=== PATIENT | female | born 1940 | race African-American/Black ===

== ENCOUNTER 2017-06-05 11:47 | Inpatient (IN) | payer MEDICARE, OTHER ==
[2017-06-05 13:06] LABS: #Basophils 0.1 thou/uL (0.0-0.2); #Eosinphils 0.1 thou/uL (0.0-0.7); #Lymphocytes 2.6 thou/uL (1.20-3.40); #Monocytes 0.5 thou/uL (0.11-0.59); #Neutrophils 3.2 thou/uL (1.40-6.50); %Basophils 1.1 % (0.0-1.0); %Eosinophils 1.6 % (0.0-10.0); %Lymphocytes 40.8 % (21.0-51.0); %Monocytes 7.1 % (0.0-10.0); %Neutrophils 49.5 % (42.0-75.0); Hemoglobin 12.9 g/dL (12.0-16.0); Mean Corpuscular HGB CONC 31.6 g/dL (32.0-36.0); Mean Corpuscular Hemoglobin 28.1 pg (27.0-31.0); Mean Platelet Volume 7.9 fL (7.4-10.4); Platelet Count 215 thou/uL (130-400); RBC Distribution Width 13.4 % (11.5-14.5); Red Blood Cell (RBC) Count 4.59 mill/uL (4.20-5.40); White Blood Cell (WBC) Count 6.4 thou/uL (4.8-10.8)
[2017-06-05] MEDS ORDERED: Lisinopril 10 MG TAB ONE (13:17)
[2017-06-05 13:27] LABS: ALT (SGPT) 14 U/L (8-55); AST (SGOT) 18 U/L (5-34); Alkaline Phosphatase 120 U/L (40-150); Anion Gap 12 mmol/L (10-20); BUN (Urea Nitrogen) 8 mg/dL (9.8-20.1); Bilirubin, Total 0.3 mg/dL (0.2-1.2); Calc. Creatinine Clearance 0 mL/min (70-130); Calcium 9.2 mg/dL (7.8-10.44); Carbon Dioxide 29 mmol/L (23-31); Chloride 105 mmol/L (98-107); Estimated GFR-MDRD 60; Globulin 3.5 g/dL (2.4-3.5); Glucose 86 mg/dL (83-110); Potassium 3.6 mmol/L (3.5-5.1); Protein, Total 7.5 g/dL (6.0-8.3); Sodium 142 mmol/L (136-145)
[2017-06-05 13:32] LABS: CKMB 1.3 ng/mL (0-6.6); Troponin I 0.297 ng/mL (< 0.028)
[2017-06-05] MEDS ORDERED: Aspirin 325 MG TAB ONE (14:02)
[2017-06-05] MEDS ORDERED: Nitroglycerin 2% Ointment 1 INCH/1 GM Packet ONE (14:02)
[2017-06-05 16:46] LABS: Troponin I 0.255 ng/mL (< 0.028)
[2017-06-05] MEDS ORDERED: cloNIDine 0.1 MG TAB ONE (18:16)
[2017-06-05] MEDS ORDERED: Metoprolol Tartrate 50 MG TAB ONE (18:16)
[2017-06-05] MEDS ORDERED: Labetalol HCl 100 MG/20 ML VIAL SLOW IVP PRN (19:27)
[2017-06-05 19:29] LABS: Troponin I 0.283 ng/mL (< 0.028)
[2017-06-05] MEDS: cloNIDine 0.1 MG TAB PO SCH (20:59)
[2017-06-05] MEDS: Metoprolol Tartrate 100 MG TAB PO SCH (20:59)
[2017-06-05] MEDS: Atorvastatin Calcium 10 MG TAB PO SCH (20:59)
[2017-06-05 22:54] VITALS: BMI 23.4
[2017-06-06 01:34] LABS: Troponin I 0.282 ng/mL (< 0.028)
--- NOTE | 2017-06-06 07:43 | HP ---
DATE OF ADMISSION: 06/05/2017 CHIEF COMPLAINT: Elevated blood pressure. HISTORY OF PRESENT ILLNESS: Ms. Jeffries is a 77-year-old -[place] female with past medical history of seizure disorder, hypertension, and TIA, who came because of markedly elevated blood pressure for the last 3-4 days. The patient states her blood pressure has been elevated since Monday which is 3 days ago. Blood pressure was staying around more than 200 systolic, around 205- 207 and is diastolic 120. The patient states she has been taking metoprolol, but has not been taking her clonidine. The patient did not have any chest pain or shortness of breath. No nausea or vomiting. No seizure episode. When the blood pressure goes up to high where she feels dizzy. In the ER, the patient was evaluated and found to have markedly elevated blood pressure of more than 200 systolic by 100 diastolic. The patient received a dose of aspirin, nitro and lisinopril and being admitted to further management. The patient was also found to have elevated troponin in the indeterminate range. Here, the patient felt it could be demand ischemia and sought admission for further evaluation. PAST MEDICAL HISTORY: 1. Hypertension. 2. Seizure disorder. 3. Hyperlipidemia. 4. History of transient ischemic attack. PAST SURGICAL HISTORY: 1. Status post hysterectomy. 2. Status post appendectomy. CURRENT MEDICATIONS: The patient is no metoprolol 100 mg b.i.d., Dilantin 100 mg t.i.d., aspirin 81 mg daily. The patient is supposed to be on clonidine 0.1 mg b.i.d. ALLERGIES: To PENICILLIN. FAMILY HISTORY: Nothing of interest. SOCIAL HISTORY: The patient lives with family. No history of smoking. No history of alcohol. REVIEW OF SYSTEMS: Unremarkable except for the elevated blood pressure. PHYSICAL EXAMINATION: GENERAL: The patient is alert, awake and oriented x3. VITAL SIGNS: Temperature 98, pulse 76, respiration rate 19, blood pressure 200/ 100. HEENT: Head is normocephalic and atraumatic. Pupils are equal and reactive. Nasopharynx is pink, moist. NECK: Supple. No JVD. LUNGS: Bilateral air entry present, no rales, no rhonchi. HEART: S1, S2 regular. ABDOMEN: Soft. No distention, no tenderness. No abnormal bowel sounds. RECTAL: Deferred. CENTRAL NERVOUS SYSTEM: No focal deficit. LABORATORY AND X-RAY FINDINGS: CBC shows WBC 6.4, hemoglobin 12, hematocrit 40 , platelets 250. Metabolic panel: Sodium 140, potassium 4, potassium chloride 105, CO2 of 29, BUN 8, creatinine 1.0, glucose 86, Chest x-ray shows no acute process. EKG shows normal sinus rhythm, no acute ST-T wave changes seen. ASSESSMENT: 1. Hypertensive emergency. 2. Elevated troponin, indeterminant range, possible demand ischemia. 3. Seizure disorder. 4. History of transient ischemic attack. 5. Noncompliant with medications. 6. Hyperlipidemia. PLAN: 1. Vital signs q.4 hours. 2. Activity: As tolerated. 3. Allergies: To PENICILLIN. 4. Hep-Lock. 5. Labetalol 20 IVP q.6 hours p.r.n. 6. Continue her home medications. 7. Troponin I q.6 hours x2. 8. Echocardiogram. [facility]
[2017-06-06] MEDS: cloNIDine 0.1 MG TAB PO SCH ×2 (08:11→20:08)
[2017-06-06] MEDS: Metoprolol Tartrate 100 MG TAB PO SCH ×2 (08:11→20:08)
[2017-06-06] MEDS: Dronedarone HCl 400 MG TAB PO SCH (17:36)
--- NOTE | 2017-06-06 17:56 | CON ---
DATE OF CONSULTATION: 06/06/2017 REASON FOR CONSULTATION: Hypertensive urgency and elevated troponin. PRIMARY SVP RESEARCH AND STRATEGIC ANALYSIS: Dr. Ken Jeffries. HISTORY OF PRESENT ILLNESS: Ms. Jeffries is a very pleasant 77-year-old woman who is a patient of Dr Maegan Jeffries. She recently presented with hypertensive emergency. Her granddaughter states thi s began on Monday where she went to the movies and ate salted popcorn, followed nausea and markedly e levated blood pressure. Monday and Monday continued to be elevated, but fluctuant. She then state s on Monday morning it remained elevated and decided to proceed to the emergency room. She denied ch est pain, pressure, shortness of breath or other associated symptoms. Her blood pressure appears imp roved. PAST MEDICAL HISTORY: Symptomatic bradycardia status post pacemaker, seizure disorder, hypertension, and paroxysmal atrial fibrillation. PAST SURGICAL HISTORY: Hysterectomy, BTL, and appendectomy, ALLERGIES: None. HOME MEDICATIONS: Simvastatin, phenytoin, vitamin D, clonidine, aspirin, metoprolol, and Multaq. REVIEW OF SYSTEMS: Ten point review of systems is reviewed and as above negative. PHYSICAL EXAMINATION: VITAL SIGNS: Blood pressure 165/75, pulse 60, temperature 98. GENERAL: Patient is a pleasant female who is in no acute distress. The patient appears her stated age. NEUROLOGIC: The patient is alert and oriented times 3 with no focal neurologic deficits. HEENT: Sclerae without icterus. Mouth has moist mucous membranes with normal pallor. NECK: No JVD. Carotid upstroke brisk. No bruits bilaterally. LUNGS: Clear to auscultation with unlabored respirations. BACK: No scoliosis or kyphosis. CARDIAC: Regular rate and rhythm with normal S1 and S2. No S3 or S4 noted. No significant rubs, murmurs, thrills, or gallops noted throughout the precordium. PMI is not displaced. There is no parasternal heave. ABDOMEN: Soft, nontender, nondistended. No peritoneal signs present. No hepatosplenomegaly. No abnormal striae. EXTREMITIES: 2+ femoral and 2+ dorsalis pedis pulses. No cyanosis, clubbing, or edema. SKIN: No gross abnormalities. PERTINENT LABORATORY: Hemoglobin 12.9, creatinine 1.07, peak troponin 0.283. IMPRESSION: 1. Hypertensive urgency. 2. Elevated troponin. RECOMMENDATIONS: Ms. Jeffries's last stress test suggested mild hypokinesis of the inferior wall oth erwise normal wall motion with LVEF 65% and negative for ischemia, this was in 2003. She has not had a recent stress study. She would likely benefit from a stress study given elevated troponin. This is likely related to demand ischemia from hypertensive urgency. She is currently on clonidine in add ition to her metoprolol. We will add losartan and may also benefit from a diuretic. Recommendations per Dr. Ken Jeffries in a.m.
[2017-06-06] MEDS: Atorvastatin Calcium 10 MG TAB PO SCH (20:07)
[2017-06-07] MEDS: Dronedarone HCl 400 MG TAB PO SCH ×2 (08:38→16:26)
[2017-06-07] MEDS: Hydrochlorothiazide 25 MG TAB PO SCH (08:38)
[2017-06-07] MEDS: Metoprolol Tartrate 100 MG TAB PO SCH ×2 (08:38→20:34)
[2017-06-07] MEDS: cloNIDine 0.1 MG TAB PO SCH ×2 (08:38→20:33)
[2017-06-07 18:53] LABS: Bilirubin Negative (Negative); Blood, Urine Small (Negative); Clarity CLOUDY (Clear); Glucose, Urine (Dipstick) Negative (Negative); Leukocyte Large (Negative); Nitrite Negative (Negative); Protein, Urine (Dipstick) Negative (Neg-Trace); Specific Gravity, Urine 1.013 (1.002-1.036)
[2017-06-07] MEDS ORDERED: Acetaminophen 325 MG TAB PO PRN (18:54)
[2017-06-07 18:58] LABS: Bacteria/HPF 4+ HPF (None Seen); Hyaline Casts/LPF 0-3 HYALINE CAST LPF (0-3 Hyaline); Squamous Epithelial 0-3 HPF (0-3)
[2017-06-07] MEDS: Losartan 25 MG TAB PO SCH (20:33)
[2017-06-07] MEDS: Atorvastatin Calcium 10 MG TAB PO SCH (20:33)
[2017-06-08 05:36] LABS: Cardiac Risk 2.3 (Less than 4.5)
[2017-06-08] MEDS: Dronedarone HCl 400 MG TAB PO SCH ×2 (08:30→17:36)
[2017-06-08] MEDS ORDERED: Regadenoson 0.4 MG/5 ML SYRINGE ONE (11:33)
[2017-06-08] MEDS: cloNIDine 0.1 MG TAB PO SCH (13:15)
[2017-06-08] MEDS: Hydrochlorothiazide 25 MG TAB PO SCH (13:15)
[2017-06-08] MEDS: Metoprolol Tartrate 100 MG TAB PO SCH (13:16)
--- NOTE | 2017-06-08 14:03 | NM ---
CARDIAC SPECT: CLINICAL HISTORY: 77-year-old black female with chest pain, cardiac ischemia, TIA, COPD, atrial fibrillation, hypertens ion, dyslipidemia. TECHNIQUE: A myocardial perfusion scan was performed using the single isotope one day protocol with technetium-9 9m sestamibi. 9 mCi were injected intravenously for the rest exam followed by 29 mCi for the stress e xam. Pharmacologic stress with Lexiscan was monitored and interpreted by Quiana Arora NP. FINDINGS: Homogeneous tracer distribution is seen in the myocardial segments on stress and rest images without fixed or reversible defects. GATED SPECT LVEF: 87%. WALL MOTION EXAM: Normal. IMPRESSION: Normal myocardial perfusion scan. POS: [facility]
[2017-06-08] MEDS: Atorvastatin Calcium 10 MG TAB PO SCH (21:01)
[2017-06-08] MEDS: Losartan 25 MG TAB PO SCH (21:01)
[2017-06-09] MEDS: cloNIDine 0.1 MG TAB PO SCH ×3 (00:55→22:46)
[2017-06-09] MEDS: Metoprolol Tartrate 100 MG TAB PO SCH ×3 (00:56→22:10)
[2017-06-09] MEDS: Dronedarone HCl 400 MG TAB PO SCH ×2 (10:01→17:50)
[2017-06-09] MEDS: Hydrochlorothiazide 25 MG TAB PO SCH (10:01)
[2017-06-09] MEDS: Atorvastatin Calcium 10 MG TAB PO SCH (22:10)
[2017-06-09] MEDS: Losartan 25 MG TAB PO SCH (22:10)
[2017-06-10 07:46] VITALS: TEMP 96.5
[2017-06-10] MEDS: Hydrochlorothiazide 25 MG TAB PO SCH (08:49)
[2017-06-10] MEDS: cloNIDine 0.1 MG TAB PO SCH (08:49)
[2017-06-10] MEDS: Dronedarone HCl 400 MG TAB PO SCH (08:49)
[2017-06-10] MEDS: Metoprolol Tartrate 100 MG TAB PO SCH (08:49)
[2017-06-10 16:57] VITALS: BP 134/59
--- NOTE | 2017-06-10 19:35 | EKG ---
Test Reason : HIGH BP Blood Pressure : / mmHG Vent. Rate : 062 BPM Atrial Rate : 062 BPM P-R Int : 186 ms QRS Dur : 146 ms QT Int : 482 ms P-R-T Axes : -24 -59 065 degrees QTc Int : 489 ms AV dual-paced rhythm Abnormal ECG Confirmed by TOÑITO ACRROLL, DARCIE Vera ([id number]), editor index VINICIUS GORMAN ([id number]) on 06/10/2017 7:35:08 PM Referred By: Confirmed By:DARCIE SIBLEY MD
--- NOTE | 2017-06-12 12:32 | DIS ---
DATE OF ADMISSION: 06/05/2017 DATE OF DISCHARGE: 06/10/2017 ADMITTING DIAGNOSES: 1. Hypertensive emergency. 2. Elevated troponin, rule out myocardial infarction. 3. Demand ischemia. 4. Seizure disorder. 5. History of transient ischemic attack. 6. Noncompliant with medications. 7. Hyperlipidemia. FINAL DIAGNOSES: 1. Hypertensive urgency, improved. 2. Elevated troponin I, possible demand ischemia. 3. Status post stress test, which shows normal myocardial perfusion. 4. Pacemaker interrogation, normal. 5. Seizure disorder. 6. Hyperlipidemia. 7. Normal systolic left ventricular function. 8. Diastolic dysfunction. BRIEF SUMMARY OF HOSPITAL COURSE: Ms. Jeffries is a 77-year-old -[place] female admitted bec ause of markedly elevated blood pressure more than 200 of systolic and 100 of diastolic. The patient is noncompliant as well and had hypertensive emergency. She had elevated troponin suggestive of dem and ischemia. Medications were adjusted. New medications were ordered. Initially, she was started on clonidine and metoprolol. Blood pressure was still uncontrolled, so losartan was added and also a dded hydrochlorothiazide initially by the plate furnace operator, but her blood pressure started to become low, so it was discontinued. Her clonidine was also discontinued in view of low blood pressure. The pat ient underwent a stress test after she was seen by the plate furnace operator on consultation. Windows Desktop Engineer fe lt the patient's elevated troponin I was secondary to demand ischemia. The stress test was reported as normal myocardial perfusion scan. Echocardiogram was done showed normal LV function with ejection fraction of 55%, but showed diastolic dysfunction. The patient's blood pressure finally controlled. She was discharged home. At the time of discharge, she was stable. Her vital signs were stable. Lungs are clear. Heart sounds regular. Abdomen is soft, nontender. Bowel sounds present. DISCHARGE MEDICATIONS: Include Dilantin 100 mg t.i.d., aspirin 81 mg daily, vitamin D daily 3000 uni ts, simvastatin 20 mg daily, Multaq 400 mg b.i.d., losartan 50 mg daily, metoprolol 100 mg b.i.d. Cl onidine and hydrochlorothiazide were discontinued. FOLLOWUP: The patient will come for followup next week.
--- NOTE | 2017-07-25 13:36 | STRESS ---
Acquisition Time: 2017-06-08 11:39:14 Total Exercise Time: 00:01:00 Test Indications: CARDIAC ISCHEMIA Medications: Protocol: LEXISCAN Max HR: 098 BPM 68% of Pred: 144 BPM Max BP: 168/086 mmHG Max Work Load: 1.0 METS RESTING ECG: A-V PACED AT 63 BPM SYMPTOMS: NONE NORMAL BP RESPONSE ECTOPY: NONE ECG STRESS: NO SIGNIFICANT CHANGES INTERPRETATION: AWAIT NUCLEAR IMAGES FOR DEFINITIVE DIAGNOSIS Confirmed by LIZ PIMENTEL ([id number]) on 07/25/2017 1:35:54 PM Referred By: MD Kulwinder GARCIA Confirmed By:LIZ PIMENTEL
== END 2017-06-10 10:37 | disposition home or self-care (01) | DRG 305 ==
LOC: ERS 11:47 → 2NO 14:55
PROVIDERS: ADMIT Internal Medicine; ATTEND Internal Medicine
DX: I16.0 Hypertensive urgency (principal); I24.8 Other forms of acute ischemic heart disease; G40.909 Epilepsy, unspecified, not intractable, without status epilepticus; E78.5 Hyperlipidemia, unspecified; I10 Essential (primary) hypertension; Z91.14 Patient's other noncompliance with medication regimen; Z86.73 Personal history of transient ischemic attack (TIA), and cerebral infarction without residual deficits; Z88.0 Allergy status to penicillin; Z79.82 Long term (current) use of aspirin; Z79.899 Other long term (current) drug therapy; Z95.0 Presence of cardiac pacemaker
CPT/HCPCS: 36415; 78452; 80053; 80061; 81001; 82553; 84484; 85025; 93005; 93017; 93306; A4216; A9500; J2785

== ENCOUNTER 2017-11-07 13:53 | Emergency (ER) | payer MEDICARE, OTHER ==
--- NOTE | 2017-11-07 16:20 | RAD ---
CHEST 2 VIEWS: Date: 11/07/17 HISTORY: Back pain. COMPARISON: Study from 2008. FINDINGS: Lungs are without focal air space consolidation, pneumothorax, or effusion. No acute osseous abnormal ity. Dual lead pacer is present. IMPRESSION: 1. No acute intrathoracic abnormality. 2. Likely small sliding hiatal hernia. POS: [facility]
--- NOTE | 2017-11-07 16:21 | RAD ---
LEFT SHOULDER THREE VIEWS 11/07/17 INDICATION: Left shoulder pain. FINDINGS: There is moderate osteoarthritis of the left AC joint. Left glenohumeral joint maintains appropriate alignment. There is moderate undersurface osteophytosis at the left AC joint. Partially imaged left s ided cardiac pacing device is present. IMPRESSION: Osteoarthritis of the left shoulder. No acute fracture or dislocation. POS: [facility]
--- NOTE | 2017-11-07 16:49 | CT ---
CT HEAD NONCONTRAST DATE: 11/07/17 HISTORY: Fall. Head injury. COMPARISON: 09/13/12. FINDINGS: There is no evidence of acute intracranial hemorrhage or infarct. Mild chronic ischemic small vessel disease and diffuse cortical atrophy are apparent. There is no mass effect or shift of midline struct ures. Visualized paranasal sinuses remain well aerated. IMPRESSION: No acute intracranial abnormalities are demonstrated on noncontrast CT head. POS: [facility]
== END 2017-11-07 17:02 | disposition home or self-care (01) ==
LOC: ERS 13:53
DX: M54.6 Pain in thoracic spine (principal); E78.5 Hyperlipidemia, unspecified; I10 Essential (primary) hypertension; Z87.891 Personal history of nicotine dependence; Z79.899 Other long term (current) drug therapy; Z79.82 Long term (current) use of aspirin
CPT/HCPCS: 70450; 71046

== ENCOUNTER 2018-05-22 14:08 | Emergency (ER) | payer MEDICARE, OTHER ==
[2018-05-22 14:55] LABS: #Eosinphils 0.2 thou/uL (0.0-0.7); #Lymphocytes 1.9 thou/uL (1.20-3.40); #Monocytes 0.6 thou/uL (0.11-0.59); %Basophils 0.4 % (0.0-1.0); %Eosinophils 2.3 % (0.0-10.0); %Lymphocytes 28.1 % (21.0-51.0); %Monocytes 9.4 % (0.0-10.0); %Neutrophils 59.8 % (42.0-75.0); Hemoglobin 11.6 g/dL (12.0-16.0); Mean Corpuscular HGB CONC 31.8 g/dL (32.0-36.0); Mean Corpuscular Hemoglobin 28.9 pg (27.0-31.0); Mean Platelet Volume 8.4 fL (7.4-10.4); Platelet Count 210 thou/uL (130-400); RBC Distribution Width 13.2 % (11.5-14.5); White Blood Cell (WBC) Count 6.6 thou/uL (4.8-10.8)
[2018-05-22 15:13] LABS: ALT (SGPT) 15 U/L (8-55); AST (SGOT) 17 U/L (5-34); Albumin 3.8 g/dL (3.4-4.8); Alkaline Phosphatase 77 U/L (40-150); Anion Gap 14 mmol/L (10-20); BUN (Urea Nitrogen) 9 mg/dL (9.8-20.1); Bilirubin, Total 0.5 mg/dL (0.2-1.2); Calc. Creatinine Clearance 0 mL/min (70-130); Calcium 9.4 mg/dL (7.8-10.44); Carbon Dioxide 28 mmol/L (23-31); Chloride 100 mmol/L (98-107); Estimated GFR-MDRD 49; Globulin 3.1 g/dL (2.4-3.5); Glucose 113 mg/dL (83-110); Potassium 3.3 mmol/L (3.5-5.1); Protein, Total 6.9 g/dL (6.0-8.3); Sodium 139 mmol/L (136-145)
[2018-05-22 16:22] LABS: CKMB 1.6 ng/mL (0-6.6)
[2018-05-22 18:03] LABS: Troponin I 0.176 ng/mL (< 0.028)
[2018-05-22] MEDS ORDERED: Famotidine 20 MG TAB ONE (18:31)
[2018-05-22] MEDS ORDERED: Ondansetron ODT 4 MG TAB ONE (18:31)
== END 2018-05-22 18:41 | disposition home or self-care (01) ==
LOC: ERS 14:08
DX: R11.0 Nausea (principal); E78.5 Hyperlipidemia, unspecified; I10 Essential (primary) hypertension; Z87.891 Personal history of nicotine dependence; Z79.82 Long term (current) use of aspirin; Z79.899 Other long term (current) drug therapy
CPT/HCPCS: 36415; 80053; 82553; 83690; 84484; 85025; 93005; Q0162

== ENCOUNTER 2018-07-30 10:12 | Emergency (ER) | payer MEDICARE, OTHER ==
--- NOTE | 2018-07-30 11:03 | RAD ---
Chest 2 views HISTORY: Cough. COMPARISON: 11/07/2017. FINDINGS: Cardiac silhouette and pulmonary vasculature are unremarkable. Mediastinum is midline with calcification of the aorta and a dually left subclavian cardiac electronic device. No confluent airspace consolidation, pneumothorax or pleural fluid are apparent. IMPRESSION: Atherosclerosis. No active cardiopulmonary abnormalities are demonstrated.
[2018-07-30 11:34] LABS: Hemoglobin 11.1 g/dL (12.0-16.0); Mean Corpuscular Hemoglobin 27.4 pg (27.0-31.0); Mean Corpuscular Volume 91.6 fL (78.0-98.0); Mean Platelet Volume 7.6 fL (7.4-10.4); Platelet Count 250 thou/uL (130-400); RBC Distribution Width 13.3 % (11.5-14.5); Red Blood Cell (RBC) Count 4.06 mill/uL (4.20-5.40); White Blood Cell (WBC) Count 8.7 thou/uL (4.8-10.8)
[2018-07-30 11:35] LABS: #Basophils 0.1 thou/uL (0.0-0.2); #Eosinphils 0.2 thou/uL (0.0-0.7); #Lymphocytes 2.3 thou/uL (1.20-3.40); #Monocytes 0.6 thou/uL (0.11-0.59); #Neutrophils 5.5 thou/uL (1.40-6.50); %Basophils 0.8 % (0.0-1.0); %Lymphocytes 26.7 % (21.0-51.0); %Monocytes 7.3 % (0.0-10.0); %Neutrophils 63.3 % (42.0-75.0)
[2018-07-30 11:45] LABS: MDiff Complete? YES; Platelet Morphology Comment Appears Adequate; Polychromasia SLIGHT = 2-3 cells (100X) (0-2/hpf)
[2018-07-30 12:00] LABS: ALT (SGPT) 15 U/L (8-55); AST (SGOT) 22 U/L (5-34); Albumin 3.5 g/dL (3.4-4.8); Alkaline Phosphatase 74 U/L (40-150); Anion Gap 15 mmol/L (10-20); BUN (Urea Nitrogen) 10 mg/dL (9.8-20.1); Bilirubin, Total 0.6 mg/dL (0.2-1.2); Calc. Creatinine Clearance 0 mL/min (70-130); Calcium 8.6 mg/dL (7.8-10.44); Carbon Dioxide 31 mmol/L (23-31); Chloride 94 mmol/L (98-107); Estimated GFR-MDRD 54; Glucose 102 mg/dL (83-110); Protein, Total 6.5 g/dL (6.0-8.3); Sodium 137 mmol/L (136-145)
[2018-07-30 12:15] LABS: CKMB 0.9 ng/mL (0-6.6)
[2018-07-30] MEDS ORDERED: methylPREDNISolone Sod Succ/PF 125 MG/2 ML VIAL ONE (13:29)
[2018-07-30] MEDS ORDERED: Azithromycin 250 MG TAB ONE (14:02)
== END 2018-07-30 14:13 | disposition home or self-care (01) ==
LOC: ERS 10:12
DX: J20.9 Acute bronchitis, unspecified (principal); E78.5 Hyperlipidemia, unspecified; I10 Essential (primary) hypertension; Z87.891 Personal history of nicotine dependence; Z79.899 Other long term (current) drug therapy; Z79.82 Long term (current) use of aspirin
CPT/HCPCS: 36415; 71046; 80053; 82553; 83880; 84484; 85025; 93005; 94640; 96374; J2930; J7620

== ENCOUNTER 2018-08-11 08:51 | Emergency (ER) | payer MEDICARE, OTHER ==
[2018-08-11] MEDS ORDERED: Ondansetron PF 4 MG/2 ML Vial ONE (09:09)
[2018-08-11 09:51] LABS: ALT (SGPT) 20 U/L (8-55); AST (SGOT) 19 U/L (5-34); Albumin 3.5 g/dL (3.4-4.8); Alkaline Phosphatase 68 U/L (40-150); Anion Gap 14 mmol/L (10-20); BUN (Urea Nitrogen) 12 mg/dL (9.8-20.1); Bilirubin, Total 0.6 mg/dL (0.2-1.2); Calc. Creatinine Clearance 0 mL/min (70-130); Calcium 9.4 mg/dL (7.8-10.44); Carbon Dioxide 37 mmol/L (23-31); Chloride 86 mmol/L (98-107); Estimated GFR-MDRD 40; Globulin 3.3 g/dL (2.4-3.5); Glucose 110 mg/dL (83-110); Lipase 4 U/L (8-78); Protein, Total 6.8 g/dL (6.0-8.3); Sodium 134 mmol/L (136-145)
[2018-08-11 09:54] LABS: #Eosinphils 0.1 thou/uL (0.0-0.7); #Lymphocytes 2.1 thou/uL (1.20-3.40); #Monocytes 0.6 thou/uL (0.11-0.59); #Neutrophils 7.5 thou/uL (1.40-6.50); %Basophils 0.3 % (0.0-1.0); %Eosinophils 1.1 % (0.0-10.0); %Neutrophils 72.6 % (42.0-75.0); Hemoglobin 11.8 g/dL (12.0-16.0); Mean Corpuscular HGB CONC 31.6 g/dL (32.0-36.0); Mean Corpuscular Hemoglobin 28.2 pg (27.0-31.0); Mean Corpuscular Volume 89.3 fL (78.0-98.0); Mean Platelet Volume 9.2 fL (7.4-10.4); Platelet Count 174 thou/uL (130-400); RBC Distribution Width 13.8 % (11.5-14.5); Red Blood Cell (RBC) Count 4.18 mill/uL (4.20-5.40); White Blood Cell (WBC) Count 10.3 thou/uL (4.8-10.8)
[2018-08-11 09:56] LABS: Bilirubin Negative (Negative); Blood, Urine Small (Negative); Clarity CLEAR (Clear); Glucose, Urine (Dipstick) Negative (Negative); Leukocyte Negative (Negative); Nitrite Negative (Negative); Protein, Urine (Dipstick) Negative (Neg-Trace); Specific Gravity, Urine 1.004 (1.002-1.036); pH, Urine 6.5 (5.0-9.0)
[2018-08-11 09:58] LABS: Bacteria/HPF None Seen HPF (None Seen); Hyaline Casts/LPF 4-6 HYALINE CAST LPF (0-3 Hyaline); Pathc Cast-AUWi Flag 1.49 (0-2.49); RBC/HPF 0-3 HPF (0-3); Squamous Epithelial 0-3 HPF (0-3); WBC/HPF 0-3 HPF (0-3)
[2018-08-11 10:13] LABS: CKMB 1.5 ng/mL (0-6.6)
== END 2018-08-11 12:18 | disposition home or self-care (01) ==
LOC: ERS 08:51
DX: R11.2 Nausea with vomiting, unspecified (principal); E78.5 Hyperlipidemia, unspecified; I10 Essential (primary) hypertension; Z87.891 Personal history of nicotine dependence; Z79.899 Other long term (current) drug therapy; Z79.82 Long term (current) use of aspirin
CPT/HCPCS: 80053; 81003; 81015; 82553; 83690; 84484; 85025; 93005; 96361; 96374; J2405

== ENCOUNTER 2018-10-09 16:53 | Observation (INO) | payer MEDICARE, OTHER ==
[2018-10-09 17:52] LABS: #Eosinphils 0.1 thou/uL (0.0-0.7); #Lymphocytes 2.4 thou/uL (1.20-3.40); #Monocytes 0.8 thou/uL (0.11-0.59); #Neutrophils 6.4 thou/uL (1.40-6.50); %Eosinophils 0.8 % (0.0-10.0); %Lymphocytes 24.9 % (21.0-51.0); %Monocytes 7.9 % (0.0-10.0); %Neutrophils 66.4 % (42.0-75.0); Mean Corpuscular HGB CONC 31.9 g/dL (32.0-36.0); Mean Corpuscular Hemoglobin 28.3 pg (27.0-31.0); Mean Corpuscular Volume 88.5 fL (78.0-98.0); Platelet Count 259 thou/uL (130-400); RBC Distribution Width 12.6 % (11.5-14.5); Red Blood Cell (RBC) Count 3.55 mill/uL (4.20-5.40); White Blood Cell (WBC) Count 9.7 thou/uL (4.8-10.8)
[2018-10-09 18:12] LABS: ALT (SGPT) 11 U/L (8-55); AST (SGOT) 18 U/L (5-34); Albumin 3.5 g/dL (3.4-4.8); Alkaline Phosphatase 81 U/L (40-150); Anion Gap 14 mmol/L (10-20); BUN (Urea Nitrogen) 10 mg/dL (9.8-20.1); Bilirubin, Total 0.6 mg/dL (0.2-1.2); Calc. Creatinine Clearance 0 mL/min (70-130); Carbon Dioxide 33 mmol/L (23-31); Chloride 90 mmol/L (98-107); Estimated GFR-MDRD 64; Glucose 94 mg/dL (83-110); Protein, Total 6.5 g/dL (6.0-8.3); Sodium 135 mmol/L (136-145)
[2018-10-09 18:17] LABS: Potassium 2.4 mmol/L (3.5-5.1)
[2018-10-09] MEDS ORDERED: Potassium Chloride 20 MEQ TAB ONE ×2 (18:43→19:22)
[2018-10-09] MEDS ORDERED: Potassium Chloride 40 MEQ in Sodium Chloride 0.9% 500 ML IVPB SCH (18:45)
[2018-10-09] MEDS ORDERED: Magnesium 2 GM/50 ML 2 GM in Premix Bag 1 BAG IVPB SCH (19:00)
[2018-10-09 20:07] LABS: Digoxin 1.64 ng/mL (0.8-2.0)
[2018-10-09] MEDS ORDERED: Ondansetron PF 4 MG/2 ML Vial IVP PRN (21:43)
[2018-10-09] MEDS ORDERED: Acetaminophen 325 MG TAB PO PRN ×2 (21:43→22:15)
[2018-10-09] MEDS ORDERED: Ondansetron ODT 4 MG TAB SL PRN (21:43)
[2018-10-09 21:52] VITALS: BMI 17.8
[2018-10-09] MEDS ORDERED: Metoclopramide HCl 10 MG TAB PO PRN (22:32)
[2018-10-10 05:33] LABS: #Eosinphils 0.1 thou/uL (0.0-0.7); #Lymphocytes 2.2 thou/uL (1.20-3.40); #Monocytes 0.7 thou/uL (0.11-0.59); #Neutrophils 4.3 thou/uL (1.40-6.50); %Basophils 0.4 % (0.0-1.0); %Lymphocytes 29.8 % (21.0-51.0); %Neutrophils 58.9 % (42.0-75.0); Mean Corpuscular HGB CONC 32.1 g/dL (32.0-36.0); Mean Corpuscular Hemoglobin 28.6 pg (27.0-31.0); Mean Corpuscular Volume 89.1 fL (78.0-98.0); Mean Platelet Volume 8.4 fL (7.4-10.4); Platelet Count 230 thou/uL (130-400); RBC Distribution Width 12.7 % (11.5-14.5); Red Blood Cell (RBC) Count 3.16 mill/uL (4.20-5.40); White Blood Cell (WBC) Count 7.4 thou/uL (4.8-10.8)
[2018-10-10 05:53] LABS: Anion Gap 9 mmol/L (10-20); BUN (Urea Nitrogen) 9 mg/dL (9.8-20.1); Calc. Creatinine Clearance 42 mL/min (70-130); Calcium 8.8 mg/dL (7.8-10.44); Carbon Dioxide 35 mmol/L (23-31); Chloride 98 mmol/L (98-107); Estimated GFR-MDRD 76; Glucose 99 mg/dL (83-110); Magnesium 2.6 mg/dL (1.6-2.6); Potassium 3.2 mmol/L (3.5-5.1); Sodium 139 mmol/L (136-145)
[2018-10-10] MEDS: Hydrochlorothiazide 25 MG TAB PO SCH (09:07)
[2018-10-10] MEDS: Digoxin 0.125 MG TAB PO SCH (09:07)
[2018-10-10] MEDS: Metoprolol Tartrate 100 MG TAB PO SCH ×2 (09:07→20:42)
[2018-10-10] MEDS: Aspirin Chewable 81 MG TAB PO SCH (09:07)
[2018-10-10] MEDS: Dronedarone HCl 400 MG TAB PO SCH ×2 (09:08→16:55)
[2018-10-10] MEDS ORDERED: Ondansetron PF 4 MG/2 ML Vial IVP PRN (11:10)
[2018-10-10] MEDS: Potassium Chloride 20 MEQ TAB PO SCH ×4 (13:03→20:48)
[2018-10-10] MEDS ORDERED: Atorvastatin Calcium 40 MG TAB PO SCH (21:00)
--- NOTE | 2018-10-11 00:28 | HP ---
CHIEF COMPLAINT: Severe hypokalemia and the pacemaker malfunction. HISTORY OF PRESENT ILLNESS: Ms. Jeffries is a 78-year-old female with past medical history of hypertension and seizure disorder, came because the pacemaker was not functioning. The patient notably explained clearly why the pacemaker was not working. She said she lost some paperwork and unable to interrogate the pacemaker. The patient says she had diarrhea for 3 to 4 days before coming here, but it was like watery stool, but it resolved now. Denied any abdominal pain. No fever. No chest pain. No shortness of breath. No dizziness. In the ER, the patient was evaluated and found to have severe hypokalemia with potassium of 2.9, so she was given potassium replacement and being admitted for further evaluation. Pacemaker was interrogated and is functioning well. PAST MEDICAL HISTORY: 1. Hypertension. 2. Hyperlipidemia. 3. Seizure disorder. 4. History of TIA. PAST SURGICAL HISTORY: 1. Status post hysterectomy. 2. Status post appendectomy. 3. Status post pacemaker. CURRENT MEDICATIONS: The patient is on, 1. Tylenol p.r.n. 2. Aspirin 81 mg daily. 3. Atorvastatin 40 mg daily. 4. Vitamin D 5000 units daily. 5. Digoxin 125 mcg daily. 6. Multaq 400 mg b.i.d. 7. Benicar with hydrochlorothiazide 40/25 mg daily. 8. Metoclopramide 10 mg t.i.d. p.r.n. 9. Metoprolol 100 mg b.i.d. 10. Dilantin 100 mg t.i.d. FAMILY HISTORY: Nothing. SOCIAL HISTORY: The patient lives alone. No history of smoking. No history of alcohol intake. ALLERGIES: SHE IS ALLERGIC TO PENICILLIN. REVIEW OF SYSTEMS: Unremarkable except for diarrhea. PHYSICAL EXAMINATION: VITAL SIGNS: Temperature 97, pulse 60, respiratory rate 20, blood pressure 122/60. HEENT: Head is normocephalic and atraumatic. Pupils are equal and reactive. Nasopharynx is pale and dry. Hard and soft palate. No lesions. SKIN: Turgor decreased. NECK: Supple. No JVD. LUNGS: Bilateral air entry present. No rales. No rhonchi. HEART: S1 and S2. Regular. ABDOMEN: Soft. No distention. No tenderness. Normal bowel sounds. RECTAL: Deferred. CENTRAL NERVOUS SYSTEM: No focal deficits. LABORATORY DATA: CBC shows WBC 9.7, hemoglobin 10, hematocrit 31, platelets 259. Metabolic panel; sodium 135, potassium 2.4, chloride 90, CO2 of 33, BUN 10, creatinine 1, glucose 94. Digoxin level 1.64. Chest x-ray negative. EKG shows pacemaker rhythm. ASSESSMENT: 1. Severe hypokalemia. 2. History of diarrhea, resolved. 3. Hypertension. 4. Seizure disorder. 5. Pacemaker interrogation. PLAN: 1. Vital Signs: q.4 hours. 2. Activity: As tolerated. 3. Allergies: Penicillin. 4. Hep-Lock. 5. Diet: Cardiac. 6. Continue home medications. 7. We will replace potassium. 8. Repeat BMP, magnesium level, and Dilantin level. The patient possibly will be discharged home. Job ID: [id number]
[2018-10-11 05:58] LABS: Anion Gap 12 mmol/L (10-20); BUN (Urea Nitrogen) 8 mg/dL (9.8-20.1); Calc. Creatinine Clearance 36 mL/min (70-130); Calcium 8.8 mg/dL (7.8-10.44); Carbon Dioxide 31 mmol/L (23-31); Chloride 97 mmol/L (98-107); Dilantin 2.6 ug/mL (10.0-20.0); Estimated GFR-MDRD 61; Glucose 82 mg/dL (83-110); Potassium 3.6 mmol/L (3.5-5.1); Sodium 136 mmol/L (136-145)
[2018-10-11] MEDS ORDERED: Potassium Chloride 10 MEQ TAB PO SCH (09:00)
[2018-10-11] MEDS: Hydrochlorothiazide 25 MG TAB PO SCH (09:58)
[2018-10-11] MEDS: Metoprolol Tartrate 100 MG TAB PO SCH (09:59)
[2018-10-11] MEDS: Dronedarone HCl 400 MG TAB PO SCH (10:00)
[2018-10-11] MEDS: Aspirin Chewable 81 MG TAB PO SCH (10:00)
[2018-10-11] MEDS: Digoxin 0.125 MG TAB PO SCH (10:01)
[2018-10-11 12:31] VITALS: BP 96/53; TEMP 98
--- NOTE | 2018-10-12 09:48 | DIS ---
DATE OF ADMISSION: 10/09/2018 DATE OF DISCHARGE: 10/11/2018 ADMITTING DIAGNOSES: 1. Severe hypokalemia. 2. History of diarrhea, resolved. 3. Hypertension. 4. Seizure disorder. 5. Pacemaker interrogation. FINAL DIAGNOSES: 1. Severe hypokalemia, corrected. 2. Diarrhea, improved. 3. Hypertension. 4. Seizure disorder. 5. Pacemaker interrogation. BRIEF SUMMARY OF HOSPITAL COURSE: Ms. Jeffries is a 78-year-old female, who initially came because of pacemaker malfunction. Because the patient says she do not do know how to interrogate the pacemaker, she came to the hospital. She had diarrhea prior to coming to the hospital for few days associated with severe hypokalemia with potassium of 2.4. Potassium has been replaced and it came up to 3.6. pt has beeen feeling well. so pt is being discharged home. she is stable at the time of dischaege. Her discharge meds include 1. Aspirin 81 mg daily. 2. Dilantin 100 mg t.i.d. 3. Vitamin D 5000 units daily 4. Metoprolol 100 mg b.i.d. 5. Multaq 400 mg b.i.d. 6. Digoxin 125 mcg daily. 7. Atorvastatin 40 mg at bedtime. 8. Olmesartan-hydrochlorothiazide 40/25 daily. 9. Metoclopramide 10 mg t.i.d. p.r.n. 10. Potassium chloride 10 mEq daily. FOLLOWUP: The patient will come for followup in 2 weeks. Job ID: [id number] MTDD
--- NOTE | 2018-10-12 14:05 | EKG ---
Test Reason : Blood Pressure : / mmHG Vent. Rate : 069 BPM Atrial Rate : 069 BPM P-R Int : 118 ms QRS Dur : 162 ms QT Int : 462 ms P-R-T Axes : 000 -77 109 degrees QTc Int : 495 ms AV sequential or dual chamber electronic pacemaker Confirmed by SHAKEEL WING DO ([id number]), food editor GUS ARAUJO ([id number]) on 10/12/2018 2:04:46 PM Referred By: MACIEJ Confirmed By:SHAKEEL WING DO
== END 2018-10-11 13:29 | disposition home or self-care (01) ==
LOC: ERS 16:53 → 2SW 21:02
PROVIDERS: ADMIT Internal Medicine; ATTEND Internal Medicine
DX: E87.6 Hypokalemia (principal); T82.118A Breakdown (mechanical) of other cardiac electronic device, initial encounter; I10 Essential (primary) hypertension; E78.5 Hyperlipidemia, unspecified; G40.909 Epilepsy, unspecified, not intractable, without status epilepticus; Z79.82 Long term (current) use of aspirin; Z79.899 Other long term (current) drug therapy; Z86.73 Personal history of transient ischemic attack (TIA), and cerebral infarction without residual deficits; Z87.891 Personal history of nicotine dependence; Z88.0 Allergy status to penicillin
CPT/HCPCS: 80048 ×2; 80053; 80162; 80185; 83735; 85025 ×2; 93005; 96365; 96366; 96368; 96375; 99285; G0378 ×2; 36415; J2405; J3475; J3480; J7050

== ENCOUNTER 2018-11-05 16:12 | Emergency (ER) | payer MEDICARE, OTHER ==
[~2018-11-05 16:12] MED LIST: ISOVUE-370 76%-LOCM 1 ML ONE
[2018-11-05 17:16] LABS: #Eosinphils 0.1 thou/uL (0.0-0.7); #Lymphocytes 2.2 thou/uL (1.20-3.40); #Monocytes 0.8 thou/uL (0.11-0.59); #Neutrophils 9.5 thou/uL (1.40-6.50); %Basophils 0.1 % (0.0-1.0); %Eosinophils 0.6 % (0.0-10.0); %Lymphocytes 17.4 % (21.0-51.0); %Monocytes 6.4 % (0.0-10.0); %Neutrophils 75.6 % (42.0-75.0); Hemoglobin 10.9 g/dL (12.0-16.0); Mean Corpuscular HGB CONC 30.9 g/dL (32.0-36.0); Mean Corpuscular Hemoglobin 27.5 pg (27.0-31.0); Platelet Count 293 thou/uL (130-400); Red Blood Cell (RBC) Count 3.96 mill/uL (4.20-5.40); White Blood Cell (WBC) Count 12.6 thou/uL (4.8-10.8)
[2018-11-05 17:36] LABS: ALT (SGPT) 20 U/L (8-55); AST (SGOT) 18 U/L (5-34); Albumin 3.8 g/dL (3.4-4.8); Alkaline Phosphatase 85 U/L (40-150); Anion Gap 15 mmol/L (10-20); BUN (Urea Nitrogen) 22 mg/dL (9.8-20.1); Bilirubin, Total 0.3 mg/dL (0.2-1.2); CRP (Inflammatory) 5.63 mg/dL (= or < 0.5); Calc. Creatinine Clearance 0 mL/min (70-130); Calcium 9.3 mg/dL (7.8-10.44); Carbon Dioxide 25 mmol/L (23-31); Chloride 100 mmol/L (98-107); Estimated GFR-MDRD 35; Globulin 3.5 g/dL (2.4-3.5); Glucose 139 mg/dL (83-110); Potassium 4.1 mmol/L (3.5-5.1); Protein, Total 7.3 g/dL (6.0-8.3); Sodium 136 mmol/L (136-145)
--- NOTE | 2018-11-05 17:54 | RAD ---
LEFT SHOULDER THREE VIEWS: HISTORY: Shoulder pain. FINDINGS: No fracture or dislocation. The AC joint is normally aligned. IMPRESSION: No acute abnormality identified. POS: [facility]
[2018-11-05] MEDS ORDERED: Morphine 10 MG/ML VIAL ONE (18:19)
[2018-11-05] MEDS ORDERED: Ondansetron ODT 8 MG TAB ONE (18:19)
--- NOTE | 2018-11-05 21:33 | CT ---
CT LEFT SHOULDER: INDICATIONS: Shoulder pain. Question abscess. TECHNIQUE: Axial tomograms obtained with multiplanar reconstruction through the left shoulder. FINDINGS: The humeral head is normally positioned. The AC joint is normally aligned. No evidence of fracture identified. No joint effusion. No fluid dense collection seen. IMPRESSION: No evidence of acute process. POS: [facility]
== END 2018-11-05 22:45 | disposition home or self-care (01) ==
LOC: ERS 16:12
DX: M25.512 Pain in left shoulder (principal); L03.811 Cellulitis of head [any part, except face]; I49.9 Cardiac arrhythmia, unspecified; I10 Essential (primary) hypertension; E78.5 Hyperlipidemia, unspecified; Z87.891 Personal history of nicotine dependence; Z79.899 Other long term (current) drug therapy; Z79.82 Long term (current) use of aspirin
CPT/HCPCS: 36415; 80053; 85025; 85652; 86140; 93005; 96372; J2270; Q9966

== ENCOUNTER 2019-01-03 09:23 | Outpatient (CLI) | payer MEDICARE, OTHER ==
--- NOTE | 2019-01-03 13:34 | CT ---
CT OF ABDOMEN AND PELVIS PERFORMED WITH CONTRAST ENHANCEMENT: HISTORY: Abdominal pain. History of appendectomy and hysterectomy. Abnormal weight loss. The lung bases show some chronic-appearing change. There are hepatic cysts identified within the rig ht lobe of the liver. The largest of these is 3.6 cm. The spleen, pancreas, and gallbladder regions appear unremarkable. Right and left adrenal glands and right and left kidneys are normal in size. There is a hypodensity involving the left kidney. CT Hounsfield unit numbers are compatible with a cyst. There are tiny vásquez bcentimeter hypodensities in both kidneys too small to characterize but also statistically most likel y cysts. There is no significant periaortic or mesenteric adenopathy. CT OF PELVIS PERFORMED WITH CONTRAST ENHANCEMENT: There is colonic diverticulosis which appears to involve more the descending colon. No inflammatory process. Questionable slight wall thickening to the rectosigmoid colon, but this could just be on th e basis of underdistension. I do not see any signs for pelvic lymphadenopathy or mass. No lytic or blastic bony changes. IMPRESSION: 1. Hepatic and renal cysts. 2. Colonic diverticulosis. 3. Some questionable wall thickening of the [id number] colon probably just on the basis of underd istension. POS: [facility]
== END 2019-01-03 09:24 | disposition home or self-care (01) ==
LOC: BICCT 09:23
PROVIDERS: ATTEND Internal Medicine Gastroenterology
DX: R63.4 Abnormal weight loss (principal); N28.1 Cyst of kidney, acquired; K76.89 Other specified diseases of liver; K57.30 Diverticulosis of large intestine without perforation or abscess without bleeding
CPT/HCPCS: 74177; 82565

== ENCOUNTER 2020-08-03 10:17 | Emergency (ER) | payer MEDICARE ==
[2020-08-03] MEDS ORDERED: Morphine 4 MG/ML VIAL ONE (13:39)
[2020-08-03] MEDS ORDERED: Ondansetron PF 4 MG/2 ML Vial ONE (13:39)
[2020-08-03 14:36] LABS: #Eosinphils 0.1 thou/uL (0.0-0.7); #Lymphocytes 2.6 thou/uL (1.20-3.40); #Monocytes 0.4 thou/uL (0.11-0.59); #Neutrophils 6.2 thou/uL (1.40-6.50); %Basophils 0.1 % (0.0-1.0); %Eosinophils 1.2 % (0.0-10.0); %Lymphocytes 27.6 % (21.0-51.0); %Monocytes 4.8 % (0.0-10.0); %Neutrophils 66.4 % (42.0-75.0); Hemoglobin 12.2 g/dL (12.0-16.0); Mean Corpuscular HGB CONC 29.9 g/dL (32.0-36.0); Mean Corpuscular Hemoglobin 26.6 pg (27.0-31.0); Mean Corpuscular Volume 88.8 fL (78.0-98.0); Mean Platelet Volume 8.1 fL (7.4-10.4); Platelet Count 228 thou/uL (130-400); RBC Distribution Width 13.3 % (11.5-14.5); Red Blood Cell (RBC) Count 4.59 mill/uL (4.20-5.40); White Blood Cell (WBC) Count 9.4 thou/uL (4.8-10.8)
[2020-08-03 15:06] LABS: ALT (SGPT) 10 U/L (8-55); AST (SGOT) 11 U/L (5-34); Albumin 3.6 g/dL (3.4-4.8); Alkaline Phosphatase 117 U/L (40-110); Anion Gap 14 mmol/L (10-20); BUN (Urea Nitrogen) 5 mg/dL (9.8-20.1); Bilirubin, Total 0.5 mg/dL (0.2-1.2); Calc. Creatinine Clearance 0 mL/min (70-130); Calcium 8.9 mg/dL (7.8-10.44); Carbon Dioxide 27 mmol/L (23-31); Chloride 103 mmol/L (98-107); Globulin 3.1 g/dL (2.4-3.5); Glucose 90 mg/dL (83-110); Potassium 3.5 mmol/L (3.5-5.1); Protein, Total 6.7 g/dL (5.8-8.1); Sodium 140 mmol/L (136-145)
[2020-08-03 15:24] LABS: CKMB 2.1 ng/mL (0-6.6)
[2020-08-03 16:46] LABS: Troponin I 0.209 ng/mL (< 0.028)
== END 2020-08-03 17:51 | disposition home or self-care (01) ==
LOC: ERS 10:17
DX: M79.602 Pain in left arm (principal); E78.5 Hyperlipidemia, unspecified; E78.00 Pure hypercholesterolemia, unspecified; I10 Essential (primary) hypertension; Z87.891 Personal history of nicotine dependence; Z79.82 Long term (current) use of aspirin; Z79.899 Other long term (current) drug therapy
CPT/HCPCS: 36415; 71045; 80053; 82553; 84484; 85025; 93005; 96374; 96375; J2270; J2405

== ENCOUNTER 2021-04-29 05:21 | Emergency (ER) | payer MEDICARE, OTHER, MEDICAID | END 2021-04-29 06:37 | disposition home or self-care (01) | LOC: ERS 05:21 | DX: I10 Essential (primary) hypertension (principal) | CPT/HCPCS: 99283 ==

== ENCOUNTER 2021-06-20 23:22 | Emergency (ER) | payer MEDICARE, OTHER ==
[2021-06-21] MEDS ORDERED: Amlodipine 5 MG TAB ONE (00:11)
== END 2021-06-21 00:50 | disposition home or self-care (01) ==
LOC: ERS 23:22
DX: I10 Essential (primary) hypertension (principal); E78.5 Hyperlipidemia, unspecified; E78.00 Pure hypercholesterolemia, unspecified; Z86.73 Personal history of transient ischemic attack (TIA), and cerebral infarction without residual deficits; Z79.82 Long term (current) use of aspirin; Z79.899 Other long term (current) drug therapy
CPT/HCPCS: 93005

== ENCOUNTER 2021-12-30 01:51 | Emergency (ER) | payer OTHER ==
[2021-12-30 03:16] LABS: #Eosinphils 0.1 thou/uL (0.0-0.7); #Lymphocytes 2.5 thou/uL (1.20-3.40); #Monocytes 0.4 thou/uL (0.11-0.59); #Neutrophils 5.2 thou/uL (1.40-6.50); %Basophils 0.1 % (0.0-1.0); %Eosinophils 1.8 % (0.0-10.0); %Lymphocytes 29.9 % (21.0-51.0); %Neutrophils 63.3 % (42.0-75.0); Hemoglobin 13.5 g/dL (12.0-16.0); Mean Corpuscular HGB CONC 30.9 g/dL (32.0-36.0); Mean Corpuscular Hemoglobin 28.4 pg (27.0-31.0); Mean Corpuscular Volume 91.7 fL (78.0-98.0); Platelet Count 233 thou/uL (130-400); RBC Distribution Width 13.4 % (11.5-14.5); Red Blood Cell (RBC) Count 4.75 mill/uL (4.20-5.40); White Blood Cell (WBC) Count 8.3 thou/uL (4.8-10.8)
[2021-12-30 03:37] LABS: ALT (SGPT) 17 U/L (8-55); AST (SGOT) 20 U/L (5-34); Albumin 3.9 g/dL (3.4-4.8); Alkaline Phosphatase 112 U/L (40-110); Anion Gap 14 mmol/L (10-20); BUN (Urea Nitrogen) 7 mg/dL (9.8-20.1); Bilirubin, Total 0.9 mg/dL (0.2-1.2); Calc. Creatinine Clearance 0 mL/min (70-130); Calcium 9.1 mg/dL (7.8-10.44); Carbon Dioxide 25 mmol/L (23-31); Chloride 104 mmol/L (98-107); Estimated GFR 48; Globulin 2.9 g/dL (2.4-3.5); Glucose 89 mg/dL (83-110); Potassium 3.8 mmol/L (3.5-5.1); Protein, Total 6.8 g/dL (5.8-8.1); Sodium 139 mmol/L (136-145)
[2021-12-30 04:00] LABS: CKMB 2.2 ng/mL (0-6.6)
== END 2021-12-30 04:44 | disposition home or self-care (01) ==
LOC: ERS 01:51
DX: I10 Essential (primary) hypertension (principal); E78.00 Pure hypercholesterolemia, unspecified; Z86.73 Personal history of transient ischemic attack (TIA), and cerebral infarction without residual deficits; Z95.0 Presence of cardiac pacemaker
CPT/HCPCS: 36415; 80053; 82553; 84484; 85025; 93005

== ENCOUNTER 2022-10-30 03:53 | Emergency (ER) | payer OTHER ==
[2022-10-30 04:27] LABS: #Eosinphils 0.1 thou/uL (0.0-0.7); #Monocytes 0.4 thou/uL (0.11-0.59); #Neutrophils 3.5 thou/uL (1.40-6.50); %Basophils 0.5 % (0.0-1.0); %Eosinophils 2.4 % (0.0-10.0); %Lymphocytes 29.1 % (21.0-51.0); %Monocytes 7.5 % (0.0-10.0); %Neutrophils 59.8 % (42.0-75.0); Hemoglobin 11.8 g/dL (12.0-16.0); Mean Corpuscular HGB CONC 31.1 g/dL (32.0-36.0); Mean Corpuscular Hemoglobin 28.2 pg (27.0-31.0); Mean Corpuscular Volume 90.7 fl (78.0-98.0); Mean Platelet Volume 10.4 fL (7.4-10.4); Platelet Count 202 10x3/uL (130-400); RBC Distribution Width 14.1 % (11.5-14.5); Red Blood Cell (RBC) Count 4.18 mill/uL (4.20-5.40); White Blood Cell (WBC) Count 5.8 10x3/uL (4.8-10.8)
[2022-10-30] MEDS ORDERED: Morphine 2 MG/ML VIAL ONE (04:35)
[2022-10-30 04:49] LABS: ALT (SGPT) 11 U/L (8-55); AST (SGOT) 18 U/L (5-34); Albumin 3.6 g/dL (3.4-4.8); Alkaline Phosphatase 95 U/L (40-110); Anion Gap 16 mmol/L (10-20); BUN (Urea Nitrogen) 11 mg/dL (9.8-20.1); Bilirubin, Total 0.6 mg/dL (0.2-1.2); Calc. Creatinine Clearance 0 mL/min (70-130); Calcium 8.7 mg/dL (7.8-10.44); Carbon Dioxide 23 mmol/L (23-31); Chloride 104 mmol/L (98-107); Estimated GFR 59; Globulin 3.3 g/dL (2.4-3.5); Glucose 87 mg/dL (83-110); Potassium 3.7 mmol/L (3.5-5.1); Protein, Total 6.9 g/dL (5.8-8.1); Sodium 139 mmol/L (136-145)
== END 2022-10-30 06:59 | disposition home or self-care (01) ==
LOC: ERS 03:53
DX: M79.605 Pain in left leg (principal); E78.00 Pure hypercholesterolemia, unspecified; I10 Essential (primary) hypertension
CPT/HCPCS: 36415; 72192; 80053; 85025; 93005; 96374; J2272

== ENCOUNTER 2025-03-19 23:23 | Inpatient (IN) | payer OTHER ==
[~2025-03-19 23:23] MED LIST changes: -ISOVUE-370 76%-LOCM 1 ML ONE; +Iopamidol 370 76% 100 ML VIAL ONE
[2025-03-19 23:40] LABS: #Basophils Less than 0.03 10x3/uL (0.0-0.2); #Eosinophils 0.06 10x3/uL (0.0-0.7); #Monocytes 0.28 10x3/uL (0.11-0.59); #Neutrophils 5.94 10x3/uL (1.40-6.50); %Basophils 0.3 % (0.0-1.0); %Eosinophils 0.8 % (0.0-10.0); %Lymphocytes 15.9 % (21.0-51.0); %Monocytes 3.7 % (0.0-10.0); %Neutrophils 78.9 % (42.0-75.0); Hematocrit 40.0 % (36.0-47.0); Hemoglobin 12.4 g/dL (12.0-16.0); Mean Corpuscular Hemoglobin 27.7 pg (27.0-31.0); Mean Corpuscular Volume 89.5 fL (78.0-98.0); Platelet Count 149 10x3/uL (130-400); Red Blood Cell (RBC) Count 4.47 mill/uL (4.20-5.40); White Blood Cell (WBC) Count 7.53 10x3/uL (4.8-10.8)
[2025-03-19] MEDS ORDERED: Ondansetron PF 4 MG/2 ML Vial ONE (23:46)
[2025-03-19 23:51] LABS: INR-International Normal Ratio 1.0; PTT 23.7 sec (22.9-36.1); Prothrombin Time 13.5 sec (12.0-14.7)
[2025-03-20 00:04] LABS: ALT (SGPT) 63 U/L (Less than 34); AST (SGOT) 175 U/L (11-34); Albumin 3.7 g/dL (3.1-4.5); Alkaline Phosphatase 137 U/L (40-110); Anion Gap 15 mmol/L (10-20); BUN (Urea Nitrogen) 16 mg/dL (9.8-20.1); Bilirubin, Total 0.6 mg/dL (0.3-1.2); Calc. Creatinine Clearance 0 mL/min (70-130); Calcium 8.8 mg/dL (7.8-10.44); Carbon Dioxide 23 mmol/L (23-31); Chloride 106 mmol/L (98-107); Globulin 3.1 g/dL (2.4-3.5); Glucose 145 mg/dL (83-110); Lipase 21 U/L (8-78); Potassium 4.1 mmol/L (3.5-5.1); Sodium 140 mmol/L (136-145)
[2025-03-20] MEDS ORDERED: Glucagon 1 MG/ML KIT IM PRN (02:59)
[2025-03-20] MEDS ORDERED: Dextrose 50% Abboject 50 ML SYRINGE SLOW IVP PRN (02:59)
[2025-03-20] MEDS ORDERED: TETANUS, DIPHTHERIA TOX,ADULT (TDVAX) 0.5 ML VIAL IM ONE (02:59)
[2025-03-20] MEDS ORDERED: Acetaminophen 325 MG TAB PO PRN (03:00)
[2025-03-20] MEDS ORDERED: cefTRIAXone (ROCEPHIN) 2 GM VIAL ONE (03:13)
[2025-03-20] MEDS ORDERED: HYDROmorphone 0.5 MG/0.5 ML SYRINGE SLOW IVP PRN (03:30)
[2025-03-20 04:45] LABS: CAUTI Indications for Culture Dysuria,urgency,freq; Glucose, Urine (Dipstick) Normal (Negative); Leukocyte 75 Leu/uL (Negative); Protein, Urine (Dipstick) 20 mg/dL (Neg-Trace); Specific Gravity, Urine 1.049 (1.002-1.036)
[2025-03-20 04:46] LABS: Bacteria/HPF 1+ HPF (None Seen); Urine Culture Reflex No No
[2025-03-20 05:29] VITALS: BMI 21.4
[2025-03-20] MEDS: cefTRIAXone\\ROCEPHIN 2 GM in Sodium Chloride 0.9% 100 ML IVPB SCH (06:15)
[2025-03-20 08:18] LABS: Hematocrit 42.1 % (36.0-47.0); Hemoglobin 12.9 g/dL (12.0-16.0); Platelet Count 187 10x3/uL (130-400)
[2025-03-20] MEDS: Heparin 10,000 UNITS/ 10 ML VIAL SLOW IVP SCH (09:11)
[2025-03-20 10:16] LABS: Magnesium 2.1 mg/dL (1.6-2.6)
[2025-03-20] MEDS: Famotidine 20 MG TAB PO SCH (11:04)
[2025-03-20] MEDS: Metoprolol Succinate XL 25 MG ER.TAB PO SCH (11:04)
[2025-03-20] MEDS: Senokot S 8.6-50 MG TAB PO SCH (11:05)
[2025-03-20] MEDS: Aspirin 81 mg Enteric Coated Tablet PO SCH (11:05)
[2025-03-20] MEDS ORDERED: PNEUMOC 20-VAL CONJ-DIP CRM/PF 0.5 ML SYRINGE IM ONE (12:00)
[2025-03-20] MEDS: Phenytoin 125 MG/5 ML UDCUP PO SCH (17:27)
[2025-03-20] MEDS: hydrALAZINE 10 MG TAB PO SCH (17:59)
[2025-03-20] MEDS: Phenytoin Extended Release 100 MG CAP PO SCH (20:34)
[2025-03-20] MEDS ORDERED: Phenytoin 125 MG/5 ML UDCUP PO SCH (21:00)
[2025-03-21 04:13] LABS: #Basophils 0.03 10x3/uL (0.0-0.2); #Eosinophils 0.09 10x3/uL (0.0-0.7); #Monocytes 0.37 10x3/uL (0.11-0.59); #Neutrophils 2.19 10x3/uL (1.40-6.50); %Basophils 0.7 % (0.0-1.0); %Eosinophils 2.2 % (0.0-10.0); %Lymphocytes 35.3 % (21.0-51.0); %Monocytes 8.9 % (0.0-10.0); %Neutrophils 52.4 % (42.0-75.0); Hematocrit 38.3 % (36.0-47.0); Hemoglobin 11.5 g/dL (12.0-16.0); Mean Corpuscular Hemoglobin 28.0 pg (27.0-31.0); Mean Corpuscular Volume 93.4 fL (78.0-98.0); Platelet Count 147 10x3/uL (130-400); Red Blood Cell (RBC) Count 4.10 mill/uL (4.20-5.40); White Blood Cell (WBC) Count 4.17 10x3/uL (4.8-10.8)
[2025-03-21 04:26] LABS: ALT (SGPT) 436 U/L (Less than 34); AST (SGOT) 365 U/L (11-34); Albumin 3.2 g/dL (3.1-4.5); Alkaline Phosphatase 134 U/L (40-110); Anion Gap 12 mmol/L (10-20); BUN (Urea Nitrogen) 10 mg/dL (9.8-20.1); Bilirubin, Total 0.4 mg/dL (0.3-1.2); Calc. Creatinine Clearance 35 mL/min (70-130); Calcium 8.6 mg/dL (7.8-10.44); Carbon Dioxide 23 mmol/L (23-31); Chloride 108 mmol/L (98-107); Globulin 2.7 g/dL (2.4-3.5); Glucose 74 mg/dL (83-110); Potassium 4.2 mmol/L (3.5-5.1); Sodium 139 mmol/L (136-145)
[2025-03-21] MEDS: Aspirin 81 mg Enteric Coated Tablet PO SCH (08:41)
[2025-03-21] MEDS: hydrALAZINE 20 MG/ML VIAL SLOW IVP SCH (11:10)
[2025-03-21] MEDS: Ondansetron PF 4 MG/2 ML Vial IVP PRN (11:10)
[2025-03-21 17:14] LABS: Hep A IgM AB NONREACTIVE (NonReactive); Hep A IgM S/CO 0.23 S/CO (0-0.79)
[2025-03-21 17:15] LABS: Hep B Surf Ag NONREACTIVE S/CO (NonReactive); Hep C IgG Ab NONREACTIVE S/CO (NonReactive); Hep C Index 0.08 S/CO (0-0.79)
[2025-03-21 17:16] LABS: Hep B Core IgM Index 0.09 S/CO (0-0.79)
[2025-03-21] MEDS: Enoxaparin 30 MG (0.3 mL) SYRINGE SC SCH (20:35)
[2025-03-22 03:12] LABS: #Basophils Less than 0.03 10x3/uL (0.0-0.2); #Eosinophils 0.11 10x3/uL (0.0-0.7); #Monocytes 0.45 10x3/uL (0.11-0.59); #Neutrophils 3.38 10x3/uL (1.40-6.50); %Basophils 0.2 % (0.0-1.0); %Eosinophils 2.0 % (0.0-10.0); %Lymphocytes 28.4 % (21.0-51.0); %Monocytes 8.1 % (0.0-10.0); %Neutrophils 61.1 % (42.0-75.0); Hematocrit 37.9 % (36.0-47.0); Hemoglobin 11.4 g/dL (12.0-16.0); Mean Corpuscular Hemoglobin 27.7 pg (27.0-31.0); Mean Corpuscular Volume 92.0 fL (78.0-98.0); Platelet Count 174 10x3/uL (130-400); Red Blood Cell (RBC) Count 4.12 mill/uL (4.20-5.40); White Blood Cell (WBC) Count 5.53 10x3/uL (4.8-10.8)
[2025-03-22 03:27] LABS: ALT (SGPT) 270 U/L (Less than 34); AST (SGOT) 128 U/L (11-34); Albumin 3.1 g/dL (3.1-4.5); Alkaline Phosphatase 119 U/L (40-110); Anion Gap 11 mmol/L (10-20); BUN (Urea Nitrogen) 11 mg/dL (9.8-20.1); Bilirubin, Total 0.5 mg/dL (0.3-1.2); Calc. Creatinine Clearance 29 mL/min (70-130); Calcium 8.6 mg/dL (7.8-10.44); Carbon Dioxide 27 mmol/L (23-31); Chloride 107 mmol/L (98-107); Globulin 2.3 g/dL (2.4-3.5); Glucose 90 mg/dL (83-110); Magnesium 2.1 mg/dL (1.6-2.6); Potassium 4.0 mmol/L (3.5-5.1); Sodium 141 mmol/L (136-145)
[2025-03-22 06:59] LABS: Hematocrit 36.8 % (36.0-47.0); Hemoglobin 11.1 g/dL (12.0-16.0); Platelet Count 148 10x3/uL (130-400)
[2025-03-22] MEDS: hydrALAZINE 20 MG/ML VIAL SLOW IVP PRN (12:32)
[2025-03-23 05:40] LABS: #Basophils Less than 0.03 10x3/uL (0.0-0.2); #Eosinophils 0.11 10x3/uL (0.0-0.7); #Monocytes 0.44 10x3/uL (0.11-0.59); #Neutrophils 4.45 10x3/uL (1.40-6.50); %Basophils 0.3 % (0.0-1.0); %Eosinophils 1.7 % (0.0-10.0); %Lymphocytes 24.1 % (21.0-51.0); %Monocytes 6.6 % (0.0-10.0); %Neutrophils 66.8 % (42.0-75.0); Hematocrit 38.7 % (36.0-47.0); Hemoglobin 11.6 g/dL (12.0-16.0); Mean Corpuscular Hemoglobin 27.7 pg (27.0-31.0); Mean Corpuscular Volume 92.4 fL (78.0-98.0); Platelet Count 179 10x3/uL (130-400); Red Blood Cell (RBC) Count 4.19 mill/uL (4.20-5.40); White Blood Cell (WBC) Count 6.65 10x3/uL (4.8-10.8)
[2025-03-23 05:49] LABS: ALT (SGPT) 178 U/L (Less than 34); AST (SGOT) 58 U/L (11-34); Albumin 3.3 g/dL (3.1-4.5); Alkaline Phosphatase 116 U/L (40-110); Anion Gap 17 mmol/L (10-20); BUN (Urea Nitrogen) 13 mg/dL (9.8-20.1); Bilirubin, Total 0.3 mg/dL (0.3-1.2); Calc. Creatinine Clearance 28 mL/min (70-130); Calcium 8.7 mg/dL (7.8-10.44); Carbon Dioxide 20 mmol/L (23-31); Chloride 107 mmol/L (98-107); Globulin 2.8 g/dL (2.4-3.5); Glucose 92 mg/dL (83-110); Potassium 3.9 mmol/L (3.5-5.1); Sodium 140 mmol/L (136-145)
[2025-03-24 06:23] LABS: #Basophils Less than 0.03 10x3/uL (0.0-0.2); #Eosinophils 0.09 10x3/uL (0.0-0.7); #Monocytes 0.46 10x3/uL (0.11-0.59); #Neutrophils 4.31 10x3/uL (1.40-6.50); %Basophils 0.3 % (0.0-1.0); %Eosinophils 1.3 % (0.0-10.0); %Lymphocytes 27.0 % (21.0-51.0); %Monocytes 6.8 % (0.0-10.0); %Neutrophils 64.2 % (42.0-75.0); Hematocrit 37.3 % (36.0-47.0); Hemoglobin 11.4 g/dL (12.0-16.0); Mean Corpuscular Hemoglobin 28.0 pg (27.0-31.0); Mean Corpuscular Volume 91.6 fL (78.0-98.0); Platelet Count 192 10x3/uL (130-400); Red Blood Cell (RBC) Count 4.07 mill/uL (4.20-5.40); White Blood Cell (WBC) Count 6.73 10x3/uL (4.8-10.8)
[2025-03-24 06:40] LABS: ALT (SGPT) 136 U/L (Less than 34); AST (SGOT) 69 U/L (11-34); Albumin 3.1 g/dL (3.1-4.5); Alkaline Phosphatase 96 U/L (40-110); Anion Gap 13 mmol/L (10-20); BUN (Urea Nitrogen) 9 mg/dL (9.8-20.1); Bilirubin, Total 0.3 mg/dL (0.3-1.2); Calc. Creatinine Clearance 34 mL/min (70-130); Calcium 8.4 mg/dL (7.8-10.44); Carbon Dioxide 23 mmol/L (23-31); Chloride 108 mmol/L (98-107); Globulin 2.7 g/dL (2.4-3.5); Glucose 81 mg/dL (83-110); Potassium 3.8 mmol/L (3.5-5.1); Sodium 140 mmol/L (136-145)
[2025-03-24 15:39] VITALS: BP 149/65; TEMP 98.1
[2025-03-24] MEDS ORDERED: Enoxaparin 40 MG (0.4 mL) SYRINGE SC SCH (21:00)
== END 2025-03-24 15:30 | disposition home or self-care (01) | DRG 445 ==
LOC: ERS 23:23 → 2NO 03-20 03:38 → OBSVTOIN 03-21 12:01
PROVIDERS: ADMIT Colon & Rectal Surgery; ATTEND Internal Medicine
DX: K80.00 Calculus of gallbladder with acute cholecystitis without obstruction (principal); I13.0 Hypertensive heart and chronic kidney disease with heart failure and stage 1 through stage 4 chronic kidney disease, or unspecified chronic kidney disease; I50.32 Chronic diastolic (congestive) heart failure; N17.9 Acute kidney failure, unspecified; N39.0 Urinary tract infection, site not specified; I49.9 Cardiac arrhythmia, unspecified; E78.5 Hyperlipidemia, unspecified; G40.909 Epilepsy, unspecified, not intractable, without status epilepticus; R79.89 Other specified abnormal findings of blood chemistry; N18.30 Chronic kidney disease, stage 3 unspecified; I48.0 Paroxysmal atrial fibrillation; Z88.8 Allergy status to other drugs, medicaments and biological substances; Z98.51 Tubal ligation status; Z87.891 Personal history of nicotine dependence; Z88.0 Allergy status to penicillin; Z86.73 Personal history of transient ischemic attack (TIA), and cerebral infarction without residual deficits; Z90.710 Acquired absence of both cervix and uterus; Z90.49 Acquired absence of other specified parts of digestive tract; Z95.0 Presence of cardiac pacemaker
CPT/HCPCS: 36415; 36416; 51701; 71045; 74177; 76705; 80053; 80074; 80185; 81001; 83690; 83735; 83880; 84100; 84145; 84484; 85014; 85018; 85025; 85049; 85610; 85730; 93005; 93306; 96374; 96375; 96376; G0378; J0360; J0696; J1644; J1650; J2405; J2543; J7120; Q9967